=== PATIENT | female | born 1985 | race Caucasian/White ===

== ENCOUNTER 2016-10-05 06:29 | Emergency (ER) | payer OTHER ==
[2016-10-05 07:14] LABS: BILIRUBIN NEGATIVE (NEGATIVE); BLOOD 3+ Ery/uL (NEGATIVE); CLARITY CLEAR (CLEAR); COLOR YELLOW (YELLOW); GLUCOSE (U) NORMAL (NORMAL); KETONE (U) NEGATIVE (NEGATIVE); LEUKOCYTES NEGATIVE Leu/uL (NEGATIVE); NITRITE NEGATIVE (NEGATIVE); PROTEIN NEGATIVE (NEGATIVE); SPECIFIC GRAVITY 1.025 (1.001-1.030); pH 5.5 (5.0-9.0)
[2016-10-05 07:21] LABS: BACTERIA TRACE; URINARY WBC RARE
== END 2016-10-05 07:40 | disposition home or self-care (01) ==
LOC: FER 06:29
PROVIDERS: Emergency Medicine Emergency Medical Services
DX: M54.31 Sciatica, right side (principal)
CPT/HCPCS: 81001; J1170; J1885